=== PATIENT | female | born 1945 | race Caucasian/White ===

== ENCOUNTER 2017-03-06 06:28 | Day surgery (SDC) | payer OTHER, BC ==
[2017-02-26 12:05] VITALS: BMI 24.9
[2017-03-06] MEDS ORDERED: LIDOCAINE 1%-EPI 1:100,000 30 ML MDV IJ ONE (07:17)
[2017-03-06] MEDS ORDERED: LIDOCAINE HCL 1%, 10 MG/ML (20ML VIAL) ONE (07:17)
[2017-03-06] MEDS ORDERED: EPINEPHrine/PF 1 MG/1 ML (1:1,000) AMPULE ONE (07:18)
[2017-03-06] MEDS ORDERED: PROPOFOL 20 ML ONE ×6 (07:57→09:03)
[2017-03-06] MEDS ORDERED: ceFAZolin SODIUM 1 GM VIAL ONE (08:07)
[2017-03-06] MEDS ORDERED: LIDOCAINE 1%/EPI 1:100000 (50 ML MULTI DOSE VIAL) INF ONE (08:28)
[2017-03-06] MEDS ORDERED: ePHEDrine SULFATE 50 MG/1 ML AMPULE ONE (08:30)
--- NOTE | 2017-03-06 10:21 | OP ---
DATE OF OPERATION: 03/06/2017 SURGEON: Crystal Burt MD HEAD OF SCIENCE SURGEON: Zachary Sahu PA-C PREOPERATIVE DIAGNOSIS: Left acquired chest wall deformity, status post mastectomy. POSTOPERATIVE DIAGNOSES: 1. Left acquired chest wall deformity, status post mastectomy. 2. Asymmetry of chest wall, post mastectomy. 3. Radiation damaged right breast. 4. Acquired deformity of breast. OPERATIVE PROCEDURE: Left breast reconstruction with other technique, number [id number]. OPERATIVE INDICATION: The patient is a woman who underwent partial mastectomy of the left breast and has a significant deformity of her left breast with indentation, severe scarring and asymmetry of the reconstructed chest wall. The risks and benefits of surgical versus nonsurgical alternatives, as well as the complications were described to the patient on multiple occasions regarding the procedure. She agreed to the planned procedure. OPERATIVE PROCEDURE IN DETAIL: The patient was taken to the operating room, and after induction of monitored care anesthesia in the supine position, both arms were extended and padded, and Venodyne boots were placed. The markings which were made in the standing position preoperatively for outline of the reconstruction with other technique were confirmed. After placement of sterile drapes in the usual fashion, 1% local lidocaine anesthesia was infiltrated into the dense scar on the left breast in a periareolar and lateral fashion according to where the scar lay. At this point, after allowing topical anesthesia and hemostasis for approximately 10 minutes, attention was turned to the mastectomy scar. An incision was made down through the skin, into the subcutaneous tissue, down into the deep tissues of the breast itself. A large amount of scar material was encountered. Brown, liquid fluid was extruded from the breast itself probably from old hematoma and seroma. This fluid was evacuated. Copious irrigation of the wound was performed and this was carried down to the underlying chest wall. Once this was accomplished and scar released, attention was turned to the flank area. An incision was made on each flank and then dissection was carried down to the underlying deep fascia along the abdomen and flank. Tissue was then harvested for reconstructive purposes on the left and right flanks, transferred to the back table, and prepared for reconstruction. Tissue was washed, cleansed, and prepared, and when readied, transferred to the left breast, and placed into the deep tissue just above the pectoralis muscle and the layers, building a foundation and reconstruction for the left breast. The tissue was layered into the area and good correction was achieved. After placing the patient in the sitting position, good shape and contour was seen compared to the opposite breast. All wounds were dressed after closure with Dermabond and Steri-Strips. The wounds were closed in layers using 4-0 Biosyn suture in the deep suture and 5-0 plain cat gut sutures on the skin. The donor area was also closed with interrupted sutures. All wounds were dressed sterilely. The patient was placed into a Surgi-Bra. She was awakened and transferred to the recovery room in satisfactory condition. CRYSTAL BURT M.D. [id number]
[2017-03-06 10:49] VITALS: TEMP 97.6
[2017-03-06 10:55] VITALS: BP 116/58; PULSE 84
== END 2017-03-06 10:30 | disposition home or self-care (01) ==
LOC: FASU 06:28
PROVIDERS: ATTEND Plastic Surgery
PROC: 0HRU07Z Replacement of Left Breast with Autologous Tissue Substitute, Open Approach (ICD-10-PCS; principal; 2017-03-06 08:28)
DX: M95.4 Acquired deformity of chest and rib (principal); Z90.12 Acquired absence of left breast and nipple; Z92.3 Personal history of irradiation; N65.1 Disproportion of reconstructed breast

== ENCOUNTER 2019-07-01 07:09 | Day surgery (SDC) | payer OTHER, BC ==
[2019-06-30 12:24] VITALS: BMI 25.2
[2019-07-01] MEDS ORDERED: LIDOCAINE HCL/PF 2% SDV 5ML VIAL ONE (07:59)
[2019-07-01] MEDS ORDERED: PROPOFOL 20 ML ONE ×2 (07:59)
[2019-07-01 09:11] VITALS: TEMP 97.4
[2019-07-01 09:35] VITALS: BP 121/60; PULSE 55
== END 2019-07-01 09:45 | disposition home or self-care (01) ==
LOC: FASU-ENDO 07:09
PROVIDERS: ATTEND Internal Medicine Gastroenterology
PROC: 0DJD8ZZ Inspection of Lower Intestinal Tract, Via Natural or Artificial Opening Endoscopic (ICD-10-PCS; principal; 2019-07-01 08:45)
DX: Z86.010 Personal history of colon polyps (principal); Z80.0 Family history of malignant neoplasm of digestive organs; K57.30 Diverticulosis of large intestine without perforation or abscess without bleeding

== ENCOUNTER 2023-09-13 11:19 | Inpatient (IN) | payer OTHER, BC ==
[2023-09-13] MEDS ORDERED: LACTATED RINGERS SOLUTION 1000 ML INFUS.BAG IV ONE ×2 (11:22→12:32)
[2023-09-13] MEDS ORDERED: ACETAMINOPHEN 1000 MG/100 ML BAG IVPB ONE (11:22)
[2023-09-13] MEDS ORDERED: FAMOTIDINE 20 MG/50 ML IVPB 20 MG/50 ML MG IVPB ONE ×2 (11:22→12:05)
[2023-09-13] MEDS ORDERED: ACETAMINOPHEN INJECTION 100 ML IVPB ONE ×2 (12:05→19:18)
[2023-09-13 12:24] LABS: HEMATOCRIT 52.1 % (32.4-45.2); HEMOGLOBIN 17.2 G/dL (10.7-15.3); MCH 27.8 pg (25.7-33.7); MCHC 33.1 g/dl (32.0-36.0); MEAN CELL VOLUME 84.2 fl (80-96); MEAN PLT VOLUME 10.2 fl (7.5-11.1); PLATELET COUNT 407.6 10^3/uL (134-434); RBC 6.19 10^6/uL (3.60-5.2); RDW 16.6 % (11.6-15.6); WHITE BLOOD COUNT 17.8 10^3/uL (4.0-10.8)
[2023-09-13 12:26] LABS: ALBUMIN 3.6 g/dl (3.4-5.0); BILIRUBIN,TOTAL 0.5 mg/dl (0.2-1); CALCIUM 9.4 mg/dl (8.5-10.1); CREATININE 2.2 mg/dl (0.6-1.3); MAGNESIUM 2.4 mg/dL (1.8-2.4); TOT PROT 6.6 g/dl (6.4-8.2)
[2023-09-13 12:33] LABS: PLATELET ESTIMATE ADEQUATE
[2023-09-13] MEDS ORDERED: CEFOXITIN SODIUM 2 GM in DEXTROSE 5%-WATER - 100 ML IVPB ONE (12:42)
[2023-09-13] MEDS ORDERED: CEFOXITIN SODIUM 2 GM IVPB ONE (13:32)
[2023-09-13] MEDS ORDERED: LACTATED RINGERS SOLUTION 1,000 ML/1,000 ML INFUS.BAG IV SCH (15:30)
[2023-09-13] MEDS ORDERED: ERTAPENEM SODIUM 1 GM in SODIUM CHLORIDE 50 ML IVPB SCH (18:30)
[2023-09-13] MEDS ORDERED: PROPOFOL 20 ML ONE (19:09)
[2023-09-13] MEDS ORDERED: FENTANYL CITRATE/PF 50 MCG/ML VIAL ONE (19:09)
[2023-09-13] MEDS ORDERED: MIDAZOLAM HCL 2 MG/2 ML SINGLE DOSE VIAL ONE (19:09)
[2023-09-13] MEDS ORDERED: SUCCINYLCHOLINE CHLORIDE 200 MG/10 ML SYRINGE ONE (19:11)
[2023-09-13] MEDS ORDERED: ROCURONIUM BROMIDE 50 MG/5 ML SYRINGE ONE (19:11)
[2023-09-13] MEDS ORDERED: cefOXitin SODIUM 2 GM VIAL (RESTRICTED TO ID) IVPB ONE ×2 (19:18→20:06)
[2023-09-13] MEDS ORDERED: ACETAMINOPHEN 325 MG TABLET (FP) PO PRN (19:43)
[2023-09-13] MEDS ORDERED: ONDANSETRON 4 MG/2 ML VIAL IVPUSH PRN ×2 (19:43→22:34)
[2023-09-13] MEDS ORDERED: LACTATED RINGERS SOLUTION 1,000 ML IV SCH (19:45)
[2023-09-13] MEDS ORDERED: HYDROmorphone *PCA* 10MG/50ML DISP.SYRIN PCA SCH (19:45)
[2023-09-13] MEDS ORDERED: HYDROmorphone HCl 2 MG/ML VIAL ONE (20:09)
[2023-09-13] MEDS ORDERED: HYDROmorphone *PCA* 10MG/50ML DISP.SYRIN ONE (20:14)
[2023-09-13] MEDS ORDERED: DEXAMETHASONE SOD PHOSPHATE 4 MG/1 ML VIAL ONE (20:22)
[2023-09-13] MEDS ORDERED: ONDANSETRON 4 MG/2 ML VIAL ONE (20:22)
[2023-09-13] MEDS ORDERED: SUGAMMADEX SODIUM 200 MG/2 ML VIAL ONE (20:40)
[2023-09-13] MEDS: LACTATED RINGERS SOLUTION 1,000 ML/1,000 ML INFUS.BAG IV SCH (22:20)
[2023-09-14] MEDS: HYDROmorphone *PCA* 10MG/50ML DISP.SYRIN PCA SCH ×2 (00:34→23:18)
[2023-09-14 01:20] VITALS: BMI 26.9
[2023-09-14] MEDS ORDERED: CEFOXITIN SODIUM 2 GM in DEXTROSE 5%-WATER 100 ML IVPB SCH (04:00)
[2023-09-14] MEDS: ACETAMINOPHEN 1000 MG/100 ML BAG IVPB SCH ×4 (05:11→23:16)
[2023-09-14 08:05] LABS: HEMATOCRIT 37.5 % (32.4-45.2); MCH 27.1 pg (25.7-33.7); MCHC 31.9 g/dl (32.0-36.0); MEAN CELL VOLUME 84.7 fl (80-96); MEAN PLT VOLUME 9.2 fl (7.5-11.1); PLATELET COUNT 303 10^3/uL (134-434); RBC 4.42 M/mm3 (3.60-5.2); RDW 14.6 % (11.6-15.6); WHITE BLOOD COUNT 17.3 K/mm3 (4.0-10.0)
[2023-09-14 08:25] LABS: POTASSIUM 3.7 mmol/L (3.5-5.1)
[2023-09-14 08:50] LABS: BLOOD UREA NITROGEN 57.9 mg/dL (7-18); CALCIUM 7.8 mg/dL (8.5-10.1)
[2023-09-14 08:53] LABS: CREATININE 1.9 mg/dL (0.55-1.3)
[2023-09-14 09:15] LABS: ANISOCYTOSIS 0; HELMET CELLS 0; HOWELL-JOLLY BODIES 0; MACROCYTOSIS 0; OVALOCYTE 0; ROULEAU 0; SICKELED CELLS 0; TARGET CELLS 0; TEAR DROP CELLS 0; TOXIC GRANULATION 0
[2023-09-14] MEDS: PIPERACILLIN/TAZOB 2.25 GM 2.25 GM in DEXTROSE 5%-WATER - 50 ML IVPB SCH ×2 (10:16→17:53)
[2023-09-14] MEDS: LACTATED RINGERS SOLUTION 1,000 ML/1,000 ML INFUS.BAG IV SCH ×3 (10:16→23:17)
[2023-09-14] MEDS: amLODIPine BESYLATE 10 MG TABLET (FP) PO SCH (11:17)
[2023-09-14] MEDS ORDERED: morphine CARPU-JECT 2 MG/1 ML DISP.SYRIN IVPUSH PRN (17:24)
[2023-09-14] MEDS: MELATONIN 1 MG TABLET PO SCH (21:35)
[2023-09-14] MEDS: HYDROCHLOROTHIAZIDE 25 MG TABLET (FP) PO SCH (21:38)
[2023-09-14] MEDS: LISINOPRIL 20 MG TABLET PO SCH (21:38)
[2023-09-14] MEDS ORDERED: PATIENT'S OWN MEDICATION (NON-FORMULARY) (Lisinopril/Hydrochlorothiazide [Lisinopril-Hctz PO SCH (22:00)
[2023-09-15] MEDS: PIPERACILLIN/TAZOB 2.25 GM 2.25 GM in DEXTROSE 5%-WATER - 50 ML IVPB SCH ×3 (01:55→18:02)
[2023-09-15] MEDS: ACETAMINOPHEN 1000 MG/100 ML BAG IVPB SCH ×2 (05:31→13:48)
[2023-09-15] MEDS: LACTATED RINGERS SOLUTION 1,000 ML/1,000 ML INFUS.BAG IV SCH (05:35)
[2023-09-15 09:00] LABS: HEMATOCRIT 34.8 % (32.4-45.2); HEMOGLOBIN 11.3 GM/dL (10.7-15.3); MCH 27.5 pg (25.7-33.7); MCHC 32.6 g/dl (32.0-36.0); MEAN CELL VOLUME 84.5 fl (80-96); MEAN PLT VOLUME 9.6 fl (7.5-11.1); PLATELET COUNT 330 10^3/uL (134-434); RBC 4.12 M/mm3 (3.60-5.2); WHITE BLOOD COUNT 18.1 K/mm3 (4.0-10.0)
[2023-09-15 09:17] LABS: POTASSIUM 3.4 mmol/L (3.5-5.1)
[2023-09-15 09:21] LABS: ALBUMIN 1.8 g/dl (3.4-5.0); BLOOD UREA NITROGEN 33.2 mg/dL (7-18); CALCIUM 8.1 mg/dL (8.5-10.1); MAGNESIUM 2.2 mg/dL (1.8-2.4)
[2023-09-15 09:28] LABS: BILIRUBIN,TOTAL 0.5 mg/dL (0.2-1); TOT PROT 4.6 g/dl (6.4-8.2)
[2023-09-15] MEDS: amLODIPine BESYLATE 10 MG TABLET (FP) PO SCH (09:44)
[2023-09-15 13:00] LABS: ANISOCYTOSIS 0; MACROCYTOSIS 0; OVALOCYTE 2+; TOXIC GRANULATION 2+
[2023-09-15] MEDS: LISINOPRIL 20 MG TABLET PO SCH (22:10)
[2023-09-15] MEDS: HYDROCHLOROTHIAZIDE 25 MG TABLET (FP) PO SCH (22:10)
[2023-09-15] MEDS: HYDROmorphone *PCA* 10MG/50ML DISP.SYRIN PCA SCH (22:10)
[2023-09-15] MEDS: MELATONIN 1 MG TABLET PO SCH (22:10)
[2023-09-15] MEDS: ACETAMINOPHEN 1000 MG/100 ML BAG IVPB PRN (22:18)
[2023-09-16] MEDS: LACTATED RINGERS SOLUTION 1,000 ML/1,000 ML INFUS.BAG IV SCH ×2 (02:49→10:15)
[2023-09-16] MEDS ORDERED: PIPERACILLIN/TAZOBACTAM 2.25 GM VIAL IVPB ONE (03:16)
[2023-09-16] MEDS: PIPERACILLIN/TAZOB 2.25 GM 2.25 GM in DEXTROSE 5%-WATER - 50 ML IVPB SCH ×3 (03:21→17:26)
[2023-09-16] MEDS: amLODIPine BESYLATE 10 MG TABLET (FP) PO SCH (11:26)
[2023-09-16] MEDS ORDERED: amLODIPine BESYLATE 10 MG TABLET (FP) PO SCH (11:28)
[2023-09-16] MEDS ORDERED: HYDROCHLOROTHIAZIDE 25 MG TABLET (FP) PO SCH (11:51)
[2023-09-16] MEDS ORDERED: HYDROCHLOROTHIAZIDE 12.5 MG CAPSULE (FP) PO SCH (12:57)
[2023-09-16] MEDS: ACETAMINOPHEN 1000 MG/100 ML BAG IVPB PRN (18:00)
[2023-09-16] MEDS: MELATONIN 1 MG TABLET PO SCH (21:58)
[2023-09-16] MEDS: LISINOPRIL 20 MG TABLET PO SCH (21:59)
[2023-09-17] MEDS ORDERED: ACETAMINOPHEN 1000 MG/100 ML BAG IVPB PRN (00:52)
[2023-09-17] MEDS: PIPERACILLIN/TAZOB 2.25 GM 2.25 GM in DEXTROSE 5%-WATER - 50 ML IVPB SCH ×3 (03:11→17:09)
[2023-09-17 09:27] LABS: HEMATOCRIT 36.5 % (32.4-45.2); HEMOGLOBIN 11.8 GM/dL (10.7-15.3); MCH 27.7 pg (25.7-33.7); MCHC 32.4 g/dl (32.0-36.0); MEAN CELL VOLUME 85.5 fl (80-96); MEAN PLT VOLUME 9.2 fl (7.5-11.1); PLATELET COUNT 360 10^3/uL (134-434); RBC 4.27 M/mm3 (3.60-5.2); RDW 14.9 % (11.6-15.6); WHITE BLOOD COUNT 14.4 K/mm3 (4.0-10.0)
[2023-09-17 10:46] LABS: POTASSIUM 3.3 mmol/L (3.5-5.1)
[2023-09-17 10:52] LABS: BLOOD UREA NITROGEN 16.2 mg/dL (7-18); MAGNESIUM 1.8 mg/dL (1.8-2.4)
[2023-09-17 10:55] LABS: CREATININE 0.7 mg/dL (0.55-1.3)
[2023-09-17 10:56] LABS: BILIRUBIN,TOTAL 0.4 mg/dL (0.2-1); TOT PROT 5.1 g/dl (6.4-8.2)
[2023-09-17 11:17] LABS: ANISOCYTOSIS 0; HELMET CELLS 0; HOWELL-JOLLY BODIES 0; MACROCYTOSIS 0; OVALOCYTE 0; ROULEAU 0; SICKELED CELLS 0; TARGET CELLS 0; TEAR DROP CELLS 0; TOXIC GRANULATION 0
[2023-09-17] MEDS: MAGNESIUM OXIDE 400 MG TABLET (FP) PO SCH ×2 (11:35→21:52)
[2023-09-17] MEDS: POTASSIUM CHLORIDE TABS 20 MEQ TABLET.ER (FP) PO SCH ×2 (11:35→21:50)
[2023-09-17] MEDS ORDERED: LISINOPRIL 20 MG TABLET PO SCH (17:22)
[2023-09-17] MEDS ORDERED: amLODIPine BESYLATE 10 MG TABLET (FP) PO SCH (17:22)
[2023-09-17] MEDS ORDERED: amLODIPine BESYLATE 10 MG TABLET (FP) PO ONE (17:28)
[2023-09-17] MEDS ORDERED: HYDROCHLOROTHIAZIDE 25 MG TABLET (FP) PO ONE (17:28)
[2023-09-17] MEDS ORDERED: LISINOPRIL 20 MG TABLET PO ONE (17:29)
[2023-09-17] MEDS: MELATONIN 1 MG TABLET PO SCH (21:51)
[2023-09-18] MEDS: PIPERACILLIN/TAZOB 2.25 GM 2.25 GM in DEXTROSE 5%-WATER - 50 ML IVPB SCH ×3 (01:49→17:13)
[2023-09-18 10:14] LABS: HEMATOCRIT 38.2 % (32.4-45.2); HEMOGLOBIN 12.5 GM/dL (10.7-15.3); MCH 27.3 pg (25.7-33.7); MCHC 32.6 g/dl (32.0-36.0); MEAN CELL VOLUME 83.8 fl (80-96); MEAN PLT VOLUME 8.7 fl (7.5-11.1); PLATELET COUNT 376 10^3/uL (134-434); RBC 4.57 M/mm3 (3.60-5.2); RDW 15.1 % (11.6-15.6)
[2023-09-18 10:31] LABS: POTASSIUM 3.7 mmol/L (3.5-5.1)
[2023-09-18 10:36] LABS: ALBUMIN 2.1 g/dl (3.4-5.0); BLOOD UREA NITROGEN 12.2 mg/dL (7-18); MAGNESIUM 1.6 mg/dL (1.8-2.4)
[2023-09-18 10:38] LABS: TOT PROT 5.3 g/dl (6.4-8.2)
[2023-09-18 10:39] LABS: CREATININE 0.7 mg/dL (0.55-1.3)
[2023-09-18 10:54] LABS: ANISOCYTOSIS 0; MACROCYTOSIS 0
[2023-09-18 11:16] LABS: BILIRUBIN,TOTAL 0.4 mg/dL (0.2-1)
[2023-09-18] MEDS: MAGNESIUM OXIDE 400 MG TABLET (FP) PO SCH ×2 (12:02→22:17)
[2023-09-18] MEDS ORDERED: HYDROCHLOROTHIAZIDE 12.5 MG CAPSULE (FP) PO SCH (22:00)
[2023-09-18] MEDS ORDERED: LISINOPRIL 20 MG TABLET PO SCH (22:00)
[2023-09-18] MEDS ORDERED: amLODIPine BESYLATE 10 MG TABLET (FP) PO SCH (22:00)
[2023-09-18] MEDS: MELATONIN 1 MG TABLET PO SCH (22:17)
[2023-09-19] MEDS: PIPERACILLIN/TAZOB 2.25 GM 2.25 GM in DEXTROSE 5%-WATER - 50 ML IVPB SCH ×2 (02:14→10:02)
[2023-09-19 09:48] LABS: HEMATOCRIT 39.2 % (32.4-45.2); HEMOGLOBIN 12.6 GM/dL (10.7-15.3); MCH 27.3 pg (25.7-33.7); MCHC 32.2 g/dl (32.0-36.0); MEAN CELL VOLUME 84.9 fl (80-96); MEAN PLT VOLUME 8.8 fl (7.5-11.1); PLATELET COUNT 382 10^3/uL (134-434); RBC 4.61 M/mm3 (3.60-5.2); RDW 15.1 % (11.6-15.6); WHITE BLOOD COUNT 14.5 K/mm3 (4.0-10.0)
[2023-09-19 10:02] LABS: POTASSIUM 3.5 mmol/L (3.5-5.1)
[2023-09-19 10:07] VITALS: RESP 18
[2023-09-19 10:13] LABS: BLOOD UREA NITROGEN 10.3 mg/dL (7-18); CALCIUM 8.5 mg/dL (8.5-10.1)
[2023-09-19 10:14] LABS: ALBUMIN 2.3 g/dl (3.4-5.0); MAGNESIUM 1.9 mg/dL (1.8-2.4)
[2023-09-19 10:17] LABS: ANISOCYTOSIS 0; CREATININE 0.9 mg/dL (0.55-1.3); MACROCYTOSIS 0
[2023-09-19 10:18] LABS: TOT PROT 5.6 g/dl (6.4-8.2)
[2023-09-19 10:27] LABS: BILIRUBIN,TOTAL 0.6 mg/dL (0.2-1)
[2023-09-19 15:09] VITALS: BP 133/73; PULSE 76; TEMP 97.8
== END 2023-09-19 16:43 | DRG 330 ==
LOC: FER 11:19 → J8W 19:17
PROVIDERS: ADMIT Surgery; ATTEND Internal Medicine
PROC: 0D1N0Z4 Bypass Sigmoid Colon to Cutaneous, Open Approach (ICD-10-PCS; 2023-09-13)
PROC: 0DBN0ZZ Excision of Sigmoid Colon, Open Approach (ICD-10-PCS; principal; 2023-09-13 19:44)
DX: K57.20 Diverticulitis of large intestine with perforation and abscess without bleeding (principal); N17.9 Acute kidney failure, unspecified; I10 Essential (primary) hypertension; D72.829 Elevated white blood cell count, unspecified
CPT/HCPCS: 36415; 71045-TC-FY; 74176-TC; 80048; 80053; 81003; 81015; 83605; 83735; 84484; 85025; 85027; 86140; 87070; 87076; 87086; 87186; 87205; 87635; 88307-TC; 94010; 94760; 97116-GP; 97162-GP; 99285-25

== ENCOUNTER 2024-02-25 07:56 | Day surgery (SDC) | payer OTHER, BC ==
[2024-02-19 13:04] VITALS: BMI 25.0
[2024-02-25 08:11] VITALS: BP 105/52; PULSE 77; RESP 18; TEMP 97.5
[2024-02-25] MEDS ORDERED: ESMOLOL HCL 100,000 MCG/10 ML VIAL ONE (08:49)
[2024-02-25 09:22] LABS: HEMATOCRIT 46.3 % (32.4-45.2); HEMOGLOBIN 14.9 G/dL (10.7-15.3); MCH 27.9 pg (25.7-33.7); MCHC 32.2 g/dl (32.0-36.0); MEAN CELL VOLUME 86.7 fl (80-96); MEAN PLT VOLUME 9.7 fl (7.5-11.1); PLATELET COUNT 240.3 10^3/uL (134-434); RBC 5.34 10^6/uL (3.60-5.2); RDW 16.6 % (11.6-15.6); WHITE BLOOD COUNT 7.7 10^3/uL (4.0-10.8)
[2024-02-25 09:36] LABS: CALCIUM 9.8 mg/dl (8.5-10.1); POTASSIUM 3.5 mmol/L (3.5-5.1)
== END 2024-02-25 10:25 | disposition home or self-care (01) ==
LOC: FASU-ENDO 07:56
PROVIDERS: ATTEND Internal Medicine Gastroenterology
PROC: 0DJD8ZZ Inspection of Lower Intestinal Tract, Via Natural or Artificial Opening Endoscopic (ICD-10-PCS; principal; 2024-02-25)
DX: Z53.09 Procedure and treatment not carried out because of other contraindication (principal); Z12.11 Encounter for screening for malignant neoplasm of colon
CPT/HCPCS: 36415; 80048; 85027; 93005; 93010

== ENCOUNTER 2024-04-14 07:39 | Day surgery (SDC) | payer OTHER, BC ==
[2024-04-06 15:58] VITALS: BMI 25.0
[2024-04-14] MEDS ORDERED: PROPOFOL 160 ML ONE (07:42)
[2024-04-14] MEDS ORDERED: LIDOCAINE HCL/PF 2% SDV 5ML VIAL ONE (07:42)
[2024-04-14 08:47] VITALS: RESP 19; TEMP 98
[2024-04-14 08:49] VITALS: BP 93/56; PULSE 55
== END 2024-04-14 09:06 | disposition home or self-care (01) ==
LOC: FASU-ENDO 07:39
PROVIDERS: ATTEND Internal Medicine Gastroenterology
PROC: 0DJD8ZZ Inspection of Lower Intestinal Tract, Via Natural or Artificial Opening Endoscopic (ICD-10-PCS; 2024-04-14)
PROC: 0DJD8ZZ Inspection of Lower Intestinal Tract, Via Natural or Artificial Opening Endoscopic (ICD-10-PCS; principal; 2024-04-14 08:13)
DX: Z12.11 Encounter for screening for malignant neoplasm of colon (principal); K57.30 Diverticulosis of large intestine without perforation or abscess without bleeding; Z86.010 Personal history of colon polyps; Z43.3 Encounter for attention to colostomy
CPT/HCPCS: 44388; G0104